=== PATIENT | male | born 1955 | race Caucasian/White ===

== ENCOUNTER → 2019-02-07 | Outpatient (CLI) | payer OTHER ==
--- NOTE | 2019-02-08 16:06 | PATH ---
[facility] [address] [place] [address] PATHOLOGY RPT PROCEDURE Name: HELENE SEO Room #: REG [facility].#: [id number] ������������������ Admission: 02/07/19 ������������������ Date of : 51 Discharge: Report #: [id number] Path Case #: [id number] Note [facility] Accession Number: [id number] TESTS RESULT FLAG UNITS REF RANGE LAB Clinician Provided Cytology Information No. of containers..01 Other (Miscellaneous) Source: 01 RT INFER NODULE DIAGNOSIS: 02 RT INFER NODULE NEGATIVE FOR MALIGNANT CELLS. BETHESDA CATEGORY III. FOLLICULAR LESION OF UNDETERMINED SIGNIFICANCE. SPECIMEN CONSISTS OF SCANT FOLLICULAR CELLS WITH WATERY AND DENSE COLLOID. DIFFERENTIAL DIAGNOSIS INCLUDES CELLULAR ADENOMATOID NODULE AND FOLLICULAR NEOPLASM. COLLOID IS PRESENT. RED BLOOD CELLS ARE PRESENT. THIS INTERPRETATION INCLUDES EVALUATION OF A CELL BLOCK. 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 In addition to the presence of watery and dense colloid, the presence of few follicular cells as well as lack of many macrophages raises concern for a partially sampled neoplasm. The differential diagnosis for this lesion includes an adenomatoid nodule with focal Hurthle cell metasplastic changes or a Hurthle cell lesion. Nuclear features of papillary thyroid carcinoma are not identified. Please note sample may not be entirely veterans contact representative. Correlate clinically and follow-up as indicated. The RNA retain vial is sent for molecular testing. Pathologist ICD10: 02 R89.6 Signed out by: Ping Barr MD, Pathologist NPI- [id number] Performed by: Shanita Olivera, Alcohol Law Enforcement Agent ([facility]) Gross description: 17 ML, PINK, CLEAR /LCS FLAG LEGEND: L-Low Normal,H-High Normal,LL-Alert Low,HH-Alert High <-Panic Low,>-Panic High,A-Abnormal,AA-Critical Abnormal Performed at: [place] [facility] [address] PATHOLOGY RPT PROCEDURE Name: HELENE SEO Room #: REG JOSEFINA Laurent#: [id number] ������������������ Admission: 02/07/19 ������������������ Date of : 51 Discharge: Report #: [id number] Path Case #: [id number] [address] [place] [address] Kane Encarnacion MD, 02 [facility] [address] Ping Barr MD, Specimen Comment: A courtesy copy of this report has been sent to Specimen Comment: [phone]. Specimen Comment: Report sent to Performed at: 01 [facility] [address] [facility], [place], [place] [id number] MD Kane Encarnacion MD Phone: [phone]
--- NOTE | 2019-02-08 16:06 | PATH ---
[facility] [place] [address] PATHOLOGY RPT PROCEDURE Name: HELENE SEO Room #: REG [facility]#: [id number] ������������������ Admission: 02/07/19 ������������������ Date of : 51 Discharge: Report #: [id number] Path Case #: [id number] Note [facility] Accession Number: [id number] TESTS RESULT FLAG UNITS REF RANGE LAB Clinician Provided Cytology Information No. of containers..01 Other (Miscellaneous) Source: LT INFER NODULE DIAGNOSIS: 02 TANVIR INFERIOR NODULE, FINE NEEDLE ASPIRATION NEGATIVE FOR MALIGNANT CELLS. BETHESDA CATEGORY II. SPECIMEN CONSISTS OF FOLLICULAR CELLS IN MACROFOLLICLES, HEMOSIDERIN-LADEN MACROPHAGES, SCANT COLLOID AND BLOOD. THE PATTERN IS COMPATIBLE WITH ADENOMATOID NODULE. THIS INTERPRETATION INCLUDES EVALUATION OF A CELL BLOCK. Comment: Examination shows scant colloid, rare groups of thyroid follicular cells, few Hurthle cells, abundant hemosiderin laden macrophages along with blood. Findings are suggestive of an adenomatoid nodule. Nuclear features of papillary thyroid carcinoma are not identified. Please note sample may not be entirely health and safety representative. Correlate clinically and follow-up as indicated. Pathologist ICD10: 02 E04.1 Signed out by: 02 Ping Barr MD, Pathologist NPI- [id number] Performed by: 01 Shanita Olivera, Polo Coach ([employer]) Gross description: 01 20 ML, PINK, CLEAR /LCS FLAG LEGEND: L-Low Normal,H-High Normal,LL-Alert Low,HH-Alert High <-Panic Low,>-Panic High,A-Abnormal,AA-Critical Abnormal Performed at: 01 [facility] [address] [place] [address] Kane Encarnacion MD, [address] [facility] [address] Ping Barr MD, Specimen Comment: A courtesy copy of this report has been sent to [address] [address] PATHOLOGY RPT PROCEDURE Name: GURINDERDavHELENE DEN Room #: REG JOSEFINA Laurent#: [id number] ������������������ Admission: 02/07/19 ������������������ Date of : 51 Discharge: Report #: [id number] Path Case #: [id number] Specimen Comment: [phone]. Specimen Comment: Report sent to Performed at: 01 [facility] [address], [place], [place] [id number] MD Kane Encarnacion MD Phone: [phone]
== END ==
LOC: ULTRA 08:53
DX: E04.2 Nontoxic multinodular goiter (principal)